=== PATIENT | male | born 2000 | race Caucasian/White ===

== ENCOUNTER 2018-03-28 05:53 | Day surgery (SDC) | payer OTHER ==
[~2018-03-28] VITALS: Ht 180.3 cm; Wt 74.1 kg
[2018-03-28] MEDS ORDERED: LIDOCAINE HCL/PF 2% 5 ML VIAL IM ONE (05:54)
[2018-03-28] MEDS ORDERED: FentaNYL CITRATE-PF 100 MCG/2 ML VIAL IVP ONE (05:54)
[2018-03-28] MEDS ORDERED: PROPOFOL 1% 20 ML VIAL IVP ONE (05:54)
[2018-03-28] MEDS ORDERED: KETAMINE HCL 50 MG/ML 10 ML VIAL IVP ONE (05:54)
[2018-03-28] MEDS ORDERED: MIDAZOLAM HCL 2 MG/2 ML VIAL IVP ONE (05:54)
[2018-03-28] MEDS ORDERED: RINGERS SOLUTION,LACTATED 1,000 ML IV ONE ×2 (06:00→06:06)
[2018-03-28] MEDS ORDERED: CLINDAMYCIN 600 MG/D5% WATER 50 ML IV ONE (07:00)
[2018-03-28] MEDS ORDERED: PROPOFOL 1000 MG/ISO-OSM 100 ML IV ONE (07:02)
[2018-03-28] MEDS ORDERED: BUPIVACAINE HCL/PF 0.5% 30 ML VIAL ONE (07:06)
[2018-03-28] MEDS ORDERED: LIDOCAINE HCL 2%/EPI 1:200,000/PF 20 ML VIAL ONE (07:06)
[2018-03-28] MEDS ORDERED: GUM MASTIC/STORAX/MSAL/ALCOHOL LIQUID 0.67 ML VIAL TP ONE (08:02)
[2018-03-28] MEDS ORDERED: HYDROmorphone 2 MG/ML SYRINGE IVP PRN (08:15)
[2018-03-28] MEDS ORDERED: FentaNYL CITRATE-PF 100 MCG/2 ML VIAL IVP PRN (08:15)
[2018-03-28] MEDS ORDERED: MEPERIDINE-PF 25 MG/ML SYRINGE IVP PRN (08:15)
[2018-03-28] MEDS ORDERED: ACETAMINOPHEN 500 MG TABLET PO PRN (08:45)
[2018-03-28] MEDS ORDERED: IBUPROFEN 800 MG TABLET PO PRN (08:45)
== END 2018-03-28 09:50 | disposition home or self-care (01) ==
LOC: SURGERY 05:53
PROVIDERS: ATTEND Surgery
DX: L72.0 Epidermal cyst (principal); Z88.0 Allergy status to penicillin
CPT/HCPCS: 11406; 88304; J2250; J2704 ×2; J3010; J3490 ×4; J7120